=== PATIENT | male | born 1980 | race Caucasian/White ===

== ENCOUNTER 2018-12-11 21:18 | Emergency (ER) | payer MEDICAID ==
--- NOTE | 2018-12-11 21:39 | EDM.PDOC ---
ED HPI GENERAL MEDICAL PROBLEM - General Stated Complaint: PANIC ATTACK Time Seen by Provider: 12/11/18 21:25 Source of Information: Reports: Patient - History of Present Illness INITIAL COMMENTS - FREE TEXT/NARRATIVE: pt comes in with c/o feeling anxious and restless , started suddenly about 30 minutes ago, report feeling fearful, denies any suicidal or homicidal ideation, or anything that he is aware off that may have triggered this , pt denies alcohol or illicit drug abuse. pt report Hx of anxiety and insomina and tells me this is why he is on Seroquel , beside the above pt has no other medical concerns. . - Related Data Allergies Allergy/AdvReac Type Severity Reaction Status Date / Time No Known Allergies Allergy Verified 12/11/18 21:33 Home Meds: Home Meds QUEtiapine Fumarate [Quetiapine Fumarate] 200 mg PO BEDTIME 12/11/18 [History] Past Medical History - Past Health History Medical/Surgical History: Denies Medical/Surgical History ED ROS GENERAL - Review of Systems Review Of Systems: See Below Constitutional: Reports: No Symptoms Respiratory: Reports: Shortness of Breath Cardiovascular: Denies: Chest Pain GI/Abdominal: Reports: No Symptoms Psychiatric: Reports: Anxiety. Denies: Hallucinations, Homicidal Ideation, Suicidal Ideation ED EXAM, GENERAL - Physical Exam Exam: See Below Exam Limited By: No Limitations General Appearance: Alert, Anxious, Mild Distress Ears: Normal TMs Nose: Normal Inspection Throat/Mouth: Normal Inspection Head: Atraumatic Neck: Normal Inspection, Supple, Non-Tender Respiratory/Chest: No Respiratory Distress, Lungs Clear, Normal Breath Sounds Cardiovascular: Regular Rate, Rhythm. No: No Murmur GI/Abdominal: Normal Bowel Sounds, Soft, Non-Tender Back Exam: Normal Inspection, Full Range of Motion Extremities: Normal Inspection, Normal Range of Motion Neurological: Alert, Oriented, CN II-XII Intact, Normal Gait Psychiatric: Anxious. No: Tearful Skin Exam: Warm Course - Vital Signs Text/Narrative:: pt is having a panic attack, he is now comfortable after Ativan 2mg IM, and stable for discharge. pt to follow with PCP in 2 days. Last Recorded V/S: Last Vital Signs Temp 36.8 C 12/11/18 21:18 Pulse 104 H 12/11/18 21:18 Resp 18 12/11/18 21:18 BP 161/96 H 12/11/18 21:18 Pulse Ox 99 12/11/18 21:18 - Orders/Labs/Meds Meds: Medications Discontinued Medications Generic Name Dose Route Start Last Admin Trade Name Sury PRN Reason Stop Dose Admin Lorazepam 2 mg 12/11/18 21:40 12/11/18 21:47 Ativan IM 12/11/18 21:41 2 mg ONETIME ONE Administration Departure - Departure Time of Disposition: 22:12 Disposition: Home, Self-Care 01 Clinical Impression: Panic attack - Discharge Information Referrals: PCP,None [Primary Care Provider] -
[2018-12-11] MEDS ORDERED: LORazepam 2 MG/ML SDV IM ONE (21:40)
[2018-12-11] MEDS ORDERED: Haloperidol Lactate 5 MG/ML SDV IM ONE (23:01)
== END 2018-12-12 | disposition home or self-care (01) ==
LOC: FB.ED 21:18
DX: F41.0 Panic disorder [episodic paroxysmal anxiety] (principal); F20.9 Schizophrenia, unspecified
CPT/HCPCS: 96372; 99283; J1630; J2060

== ENCOUNTER 2018-12-20 23:10 | Emergency (ER) | payer MEDICAID ==
[2018-12-20] MEDS ORDERED: Haloperidol Lactate 5 MG/ML SDV IM ONE (23:27)
--- NOTE | 2018-12-21 01:29 | EDM.PDOCBH ---
ED HPI GENERAL MEDICAL PROBLEM - General Chief Complaint: Behavioral/Psych Stated Complaint: PANIC ATTACK Time Seen by Provider: 12/20/18 23:20 Source of Information: Reports: Patient, Significant Other - History of Present Illness INITIAL COMMENTS - FREE TEXT/NARRATIVE: Grzegorz comes into [facility] ED with agitation, delusions of persecution, and auditory hallucinations threatening him harm. Sxs have been occurring with increasing frequency over the past few weeks, without suicidal or homicidal ideation. He has a PMH of paranoid schizophrenia, saw Dr. Castillo for over a year in [place], but has not kept in contact or been taking psychotropic therapy for "a long time". He denies alcohol or drug abuse. He is willing to seek psychiatric care elsewhere, but is afraid to go home with SO. - Related Data Allergies Allergy/AdvReac Type Severity Reaction Status Date / Time No Known Allergies Allergy Verified 12/20/18 23:17 Past Medical History - Past Health History Medical/Surgical History: Denies Medical/Surgical History Psychiatric History: Reports: Anxiety, Schizophrenia Social & Family History - Family History Family Medical History: Noncontributory - Tobacco Use Smoking Status *Q: Current Every Day Smoker Years of Tobacco use: 20 Packs/Tins Daily: 1 - Caffeine Use Caffeine Use: Reports: Soda - Recreational Drug Use Recreational Drug Use: Yes Drug Use in Last 12 Months: Yes Other Recreational Drug Type: not willing to tell Recreational Drug Use Frequency: Binges ED ROS GENERAL - Review of Systems Review Of Systems: Unable To Obtain ED EXAM, BEHAVIORAL HEALTH - Physical Exam Exam: See Below Exam Limited By: Other (agitated) General Appearance: Alert, WD/WN, Anxious Eye Exam: Bilateral Eye: EOMI, Normal Inspection, PERRL Ears: Normal External Exam Nose: Normal Inspection Throat/Mouth: Normal Inspection Head: Normocephalic Neck: Normal Inspection Respiratory/Chest: Lungs Clear Cardiovascular: Regular Rate, Rhythm GI/Abdominal: Normal Bowel Sounds, Soft, Non-Tender, No Mass (Male) Exam: Deferred Rectal (Males) Exam: Deferred Back Exam: Normal Inspection, Full Range of Motion Extremities: Normal Range of Motion Neurological: Alert, CN II-XII Intact, Normal Reflexes, No Motor/Sensory Deficits Psychiatric: Alert, Restless, Agitated, Poor Eye Contact, Tangential Thoughts, Auditory Hallucinations, Paranoid Thoughts Skin Exam: Warm, Dry, Intact, Normal color, No rash COURSE, BEHAVIORAL HEALTH COMP - Course Vital Signs: Last Vital Signs Temp 36.5 C 12/20/18 23:15 Pulse 58 L 12/20/18 23:15 Resp 18 12/20/18 23:15 BP 152/113 H 12/20/18 23:15 Pulse Ox 98 12/20/18 23:15 Orders, Labs, Meds: Medications Discontinued Medications Generic Name Dose Route Start Last Admin Trade Name Freq PRN Reason Stop Dose Admin Haloperidol Lactate 10 mg 12/20/18 23:27 12/20/18 23:34 Haldol IM 12/20/18 23:28 10 mg ONETIME ONE Administration Departure - Departure Time of Disposition: :34 Disposition: Home, Self-Care 01 Condition: Poor Clinical Impression: Schizophrenia Qualifiers: Schizophrenia type: paranoid schizophrenia Qualified Code(s): F20.0 - Paranoid schizophrenia - Discharge Information *PRESCRIPTION DRUG MONITORING PROGRAM REVIEWED*: Not Applicable *COPY OF PRESCRIPTION DRUG MONITORING REPORT IN PATIENT ABIGAIL: Not Applicable Referrals: Darrius Frausto MD [Primary Care Provider] - - Problem List & Annotations (1) Schizophrenia SNOMED Code(s): 62417039 Code(s): F20.9 - SCHIZOPHRENIA, UNSPECIFIED Status: Acute Current Visit: Yes Annotation/Comment:: Grzegorz is agreeable to seeking psychiatric care, and eventually consented to go home and seek treatment as an outpatient. He will contact PCP for help in arranging an appointment. Qualifiers: Schizophrenia type: paranoid schizophrenia Qualified Code(s): F20.0 - Paranoid schizophrenia - Problem List Review Problem List Initiated/Reviewed/Updated: Yes - Assessment/Plan Plan: Follow up with PCP.
== END 2018-12-21 01:39 | disposition home or self-care (01) ==
LOC: FB.ED 23:10
DX: F20.0 Paranoid schizophrenia (principal); F17.210 Nicotine dependence, cigarettes, uncomplicated
CPT/HCPCS: 96372; 99284; J1630

== ENCOUNTER 2019-06-02 19:33 | Emergency (ER) | payer MEDICAID ==
--- NOTE | 2019-06-02 21:44 | EDM.PDOC ---
ED HPI GENERAL MEDICAL PROBLEM - General Chief Complaint: General Stated Complaint: ANXIETY Time Seen by Provider: 06/02/19 21:40 Source of Information: Reports: Patient, RN History Limitations: Reports: Altered Mental Status - History of Present Illness INITIAL COMMENTS - FREE TEXT/NARRATIVE: 38 yo male who complains of hearing voices. He has had these for a few months but gotten worse last two days. They are threatening,and as such he feels like he is unsafe and may kill himself. He is extremely anxious,and restless. He does endorse a h/o schizophrenia,anxiety and also endorses drug [id number] and weed a few days ago) he has no prior attempts for suicide but has had thought so f it. He has hospitalized at [facility] last year. - Related Data Allergies Allergy/AdvReac Type Severity Reaction Status Date / Time No Known Allergies Allergy Verified 06/02/19 19:49 Home Meds: Home Meds OLANZapine [Olanzapine] 5 mg PO DAILY 06/02/19 [History] OLANZapine [Olanzapine] 10 mg PO BEDTIME 06/02/19 [History] QUEtiapine Fumarate [Quetiapine Fumarate] 200 mg PO BEDTIME 06/02/19 [History] clonazePAM [Klonopin] 1 mg PO BEDTIME 06/02/19 [History] Past Medical History - Past Health History Medical/Surgical History: Denies Medical/Surgical History Psychiatric History: Reports: Anxiety, Schizophrenia Social & Family History - Family History Family Medical History: Noncontributory - Tobacco Use Smoking Status *Q: Current Every Day Smoker Years of Tobacco use: 19 Packs/Tins Daily: 1 - Caffeine Use Caffeine Use: Reports: Soda - Recreational Drug Use Recreational Drug Use: No ED ROS GENERAL - Review of Systems Review Of Systems: ROS reveals no pertinent complaints other than HPI. ED EXAM, GENERAL - Physical Exam Exam: See Below Exam Limited By: Altered Mental Status General Appearance: Alert, Anxious, Mild Distress Ears: Normal External Exam Ear Exam: Bilateral Ear: Auricle Normal, Canal Normal, TM normal Respiratory/Chest: No Respiratory Distress Cardiovascular: Normal Peripheral Pulses Neurological: Alert, Oriented Psychiatric: Anxious, Other (Restless,pyshcotic) Skin Exam: Warm Course - Vital Signs Last Recorded V/S: Last Vital Signs Temp 98.1 F 06/02/19 19:40 Pulse 98 06/02/19 22:05 Resp 18 06/02/19 22:05 BP 145/106 H 06/02/19 22:05 Pulse Ox 98 06/02/19 22:05 - Orders/Labs/Meds Labs: Laboratory Tests 06/02/19 06/02/19 06/02/19 Range/Units 20:05 20:05 20:05 WBC 10.1 (4.5-12.0) X10-3/uL RBC 5.15 (4.30-5.75) x10(6)uL Hgb 16.1 (13.5-17.8) g/dL Hct 47.0 (30.0-51.3) % MCV 91.4 (80-96) fL MCH 31.3 (27.7-33.6) pg MCHC 34.2 (32.2-35.4) g/dL RDW 12.6 (11.5-15.5) % Plt Count 359 (125-369) X10(3)uL MPV 8.1 (7.4-10.4) fL Neut % (Auto) 58.3 (46-82) % Lymph % (Auto) 29.1 (13-37) % [place] % (Auto) 9.9 (4-12) % Eos % (Auto) 2 (1.0-5.0) % Baso % (Auto) 1 (0-2) % Neut # (Auto) 5.9 (1.6-8.3) # Lymph # (Auto) 2.9 (0.6-5.0) # [place] # (Auto) 1.0 (0.0-1.3) # Eos # (Auto) 0.2 (0.0-0.8) # Baso # (Auto) 0.1 (0.0-0.2) # Sodium 139 (135-145) mmol/L Potassium 3.7 (3.5-5.3) mmol/L Chloride 101 (100-110) mmol/L Carbon Dioxide 30 (21-32) mmol/L BUN 7 (7-18) mg/dL Creatinine 1.0 (0.70-1.30) mg/dL Est Cr Clr Drug Dosing 104.43 mL/min Estimated GFR (MDRD) > 60 (>60) BUN/Creatinine Ratio 7.0 L (9-20) Glucose 98 (80-116) mg/dL Calcium 9.3 (8.6-10.2) mg/dL Total Bilirubin 0.5 (0.1-1.3) mg/dL AST 12 (5-25) IU/L ALT 24 (12-36) U/L Alkaline Phosphatase 81 (56-112) IU/L Total Protein 7.6 (6.0-8.0) g/dL Albumin 3.6 (3.5-5.2) g/dL Globulin 4.0 g/dL Albumin/Globulin Ratio 0.9 TSH, Ultra Sensitive 1.34 (0.36-3.74) IU/mL Urine Color (YELLOW) Urine Appearance (CLEAR) Urine pH (5.0-6.5) Ur Specific [place] (1.010-1.025) Urine Protein (NEGATIVE) mg/dL Urine Glucose (UA) (NORMAL) mg/dL Urine Ketones (NEGATIVE) mg/dL Urine Occult Blood (NEGATIVE) Urine Nitrite (NEGATIVE) Urine Bilirubin (NEGATIVE) Urine Urobilinogen (NEGATIVE) mg/dL Ur Leukocyte Esterase (NEGATIVE) Urine RBC (0-5) Urine WBC (0-5) Ur Squamous Epith Cells (NS,R,O) Urine Bacteria (NS) Urine Mucus (NS) Urine Opiates Screen (NEGATIVE) Ur Oxycodone Screen (NEGATIVE) Ur Propoxyphene Screen (NEGATIVE) Ur Barbituates Screen (NEGATIVE) Ur Tricyclics Screen (NEGATIVE) Ur Phencyclidine Scrn (NEGATIVE) Ur Amphetamine Screen (NEGATIVE) Urine MDMA Screen (NEGATIVE) U Benzodiazepines Scrn (NEGATIVE) U Cocaine Metab Screen (NEGATIVE) U Marijuana (THC) Screen (NEGATIVE) Ethyl Alcohol < 0.03 (<0.03) % 06/02/19 06/02/19 Range/Units 20:50 20:50 WBC (4.5-12.0) X10-3/uL RBC (4.30-5.75) x10(6)uL Hgb (13.5-17.8) g/dL Hct (30.0-51.3) % MCV (80-96) fL MCH (27.7-33.6) pg MCHC (32.2-35.4) g/dL RDW (11.5-15.5) % Plt Count (125-369) X10(3)uL MPV (7.4-10.4) fL Neut % (Auto) (46-82) % Lymph % (Auto) (13-37) % [place] % (Auto) (4-12) % Eos % (Auto) (1.0-5.0) % Baso % (Auto) (0-2) % Neut # (Auto) (1.6-8.3) # Lymph # (Auto) (0.6-5.0) # [place] # (Auto) (0.0-1.3) # Eos # (Auto) (0.0-0.8) # Baso # (Auto) (0.0-0.2) # Sodium (135-145) mmol/L Potassium (3.5-5.3) mmol/L Chloride (100-110) mmol/L Carbon Dioxide (21-32) mmol/L BUN (7-18) mg/dL Creatinine (0.70-1.30) mg/dL Est Cr Clr Drug Dosing mL/min Estimated GFR (MDRD) (>60) BUN/Creatinine Ratio (9-20) Glucose (80-116) mg/dL Calcium (8.6-10.2) mg/dL Total Bilirubin (0.1-1.3) mg/dL AST (5-25) IU/L ALT (12-36) U/L Alkaline Phosphatase (56-112) IU/L Total Protein (6.0-8.0) g/dL Albumin (3.5-5.2) g/dL Globulin g/dL Albumin/Globulin Ratio TSH, Ultra Sensitive (0.36-3.74) IU/mL Urine Color Yellow (YELLOW) Urine Appearance Clear (CLEAR) Urine pH 6.5 (5.0-6.5) Ur Specific [place] 1.010 (1.010-1.025) Urine Protein Negative (NEGATIVE) mg/dL Urine Glucose (UA) Normal (NORMAL) mg/dL Urine Ketones Negative (NEGATIVE) mg/dL Urine Occult Blood Negative (NEGATIVE) Urine Nitrite Negative (NEGATIVE) Urine Bilirubin Negative (NEGATIVE) Urine Urobilinogen Normal (NEGATIVE) mg/dL Ur Leukocyte Esterase Negative (NEGATIVE) Urine RBC 0-5 (0-5) Urine WBC 0-5 (0-5) Ur Squamous Epith Cells Occasional (NS,R,O) Urine Bacteria Few H (NS) Urine Mucus Few H (NS) Urine Opiates Screen Negative (NEGATIVE) Ur Oxycodone Screen Negative (NEGATIVE) Ur Propoxyphene Screen Negative (NEGATIVE) Ur Barbituates Screen Negative (NEGATIVE) Ur Tricyclics Screen Negative (NEGATIVE) Ur Phencyclidine Scrn Negative (NEGATIVE) Ur Amphetamine Screen Positive H (NEGATIVE) Urine MDMA Screen Negative (NEGATIVE) U Benzodiazepines Scrn Positive H (NEGATIVE) U Cocaine Metab Screen Negative (NEGATIVE) U Marijuana (THC) Screen Negative (NEGATIVE) Ethyl Alcohol (<0.03) % Meds: Medications Discontinued Medications Generic Name Dose Route Start Last Admin Trade Name Freq PRN Reason Stop Dose Admin Clonazepam 1 mg 06/03/19 22:59 06/02/19 23:13 Klonopin PO 06/03/19 23:00 1 mg ONETIME ONE Administration Clonazepam Confirm 06/02/19 23:08 06/02/19 23:20 Klonopin Administered 06/02/19 23:09 Not Given Dose 1 mg .ROUTE .STK-MED ONE Olanzapine 10 mg 06/02/19 22:59 06/02/19 23:13 Zyprexa PO 06/02/19 23:00 10 mg ONETIME ONE Administration Quetiapine Fumarate 200 mg 06/03/19 22:59 Seroquel PO 06/03/19 23:00 ONETIME ONE Departure - Departure Time of Disposition: 01:00 Disposition: DC/Tfer to Psych Hosp/Unit 65 Condition: Good Clinical Impression: Schizophrenia, acute - Discharge Information Referrals: Darrius Frausto MD [Primary Care Provider] - Forms: ED Department Discharge - Problem List & Annotations (1) Acute psychosis SNOMED Code(s): 06526635, 43300852 Code(s): F23 - BRIEF PSYCHOTIC DISORDER Status: Acute (2) Drug abuse SNOMED Code(s): 26194331 Code(s): F19.10 - OTHER PSYCHOACTIVE SUBSTANCE ABUSE, UNCOMPLICATED Status : Acute (3) Schizophrenia, acute SNOMED Code(s): 22556789 Code(s): F23 - BRIEF PSYCHOTIC DISORDER Status: Acute (4) Schizophrenia SNOMED Code(s): 67912547 Code(s): F20.9 - SCHIZOPHRENIA, UNSPECIFIED Status: Acute Annotation/ Comment:: Grzegorz is agreeable to seeking psychiatric care, and eventually consented to go home and seek treatment as an outpatient. He will contact PCP for help in arranging an appointment. Qualifiers: Schizophrenia type: paranoid schizophrenia Qualified Code(s): F20.0 - Paranoid schizophrenia - Problem List Review Problem List Initiated/Reviewed/Updated: Yes - Assessment/Plan Plan: We consulted Jasmine Barragan. he was transferred to [facility]
[2019-06-02] MEDS ORDERED: OLANZapine 5 MG Tab PO ONE (22:59)
[2019-06-02] MEDS ORDERED: ClonazePAM 1 MG Tab ONE (23:08)
[2019-06-03] MEDS ORDERED: QUEtiapine 100 MG Tab PO ONE (22:59)
[2019-06-03] MEDS ORDERED: ClonazePAM 1 MG Tab PO ONE (22:59)
== END 2019-06-03 01:40 ==
LOC: FB.ED 19:33
DX: F23 Brief psychotic disorder (principal)
CPT/HCPCS: 36415; 80053; 80305; 80320; 81001; 84443; 85025; 99284; A9270; G0480

== ENCOUNTER 2019-07-25 11:50 | Emergency (ER) | payer MEDICAID ==
[2019-07-25] MEDS ORDERED: LORazepam 1 MG Tab PO ONE (12:22)
[2019-07-25 12:41] LABS: ACETAMINOPHEN < 2 ug/mL (<2)
--- NOTE | 2019-07-25 14:56 | EDM.PDOC ---
ED HPI GENERAL MEDICAL PROBLEM - General Chief Complaint: Behavioral/Psych Stated Complaint: ANXIETY ATTACK Time Seen by Provider: 07/25/19 12:00 Source of Information: Reports: Patient - History of Present Illness INITIAL COMMENTS - FREE TEXT/NARRATIVE: pt with long Hx of depression and anxiety, comes in asking for help to be admitted to crises, states he has been very stressed lately and his anxiety is out of control , report taking his Klonopin twice daily as directed as prescribed , report occasional use of meth, denies any suicidal ideations or hallucinations, or any alcohol use or any other associated sx or medical concerns. - Related Data Allergies Allergy/AdvReac Type Severity Reaction Status Date / Time No Known Allergies Allergy Verified 07/25/19 12:02 Home Meds: Home Meds QUEtiapine Fumarate [Quetiapine Fumarate] 300 mg PO BEDTIME 06/02/19 [History] clonazePAM [Klonopin] 0.5 - 1 mg PO BID 06/02/19 [History] Past Medical History - Past Health History Medical/Surgical History: Denies Medical/Surgical History Psychiatric History: Reports: Anxiety, Panic Attack, Psych Hospitalization(s), Schizophrenia, Suicide Attempt - Infectious Disease History Infectious Disease History: Reports: Chicken Pox - Past Surgical History HEENT Surgical History: Reports: Oral Surgery Social & Family History - Family History Family Medical History: Noncontributory - Tobacco Use Smoking Status *Q: Current Every Day Smoker Years of Tobacco use: 21 Packs/Tins Daily: 0.5 - Caffeine Use Caffeine Use: Reports: Coffee, Soda - Recreational Drug Use Recreational Drug Use: Yes Recreational Drug Type: Reports: Methamphetamine Other Recreational Drug Type: hx been in tx for meth use in past. Admits to smoking 3 days ago. Recreational Drug Use Frequency: Monthly ED ROS GENERAL - Review of Systems Review Of Systems: See Below Constitutional: Denies: Fever, Chills, Fatigue HEENT: Reports: No Symptoms Respiratory: Reports: No Symptoms Cardiovascular: Reports: No Symptoms GI/Abdominal: Reports: No Symptoms : Reports: No Symptoms Musculoskeletal: Reports: No Symptoms Skin: Reports: No Symptoms Neurological: Reports: No Symptoms Psychiatric: Reports: Anxiety, Confusion, Depression, Mood Lability. Denies: Agitation, Hallucinations, Homicidal Ideation, Suicidal Ideation ED EXAM, GENERAL - Physical Exam Exam: See Below Exam Limited By: No Limitations General Appearance: Alert, Anxious. No: Lethargic, Obtunded Ears: Normal External Exam, Normal TMs Nose: Normal Inspection Throat/Mouth: Normal Inspection, Normal Oropharynx Head: Atraumatic, Normocephalic Neck: Normal Inspection, Supple, Non-Tender Respiratory/Chest: No Respiratory Distress, Lungs Clear Cardiovascular: Normal Peripheral Pulses, Regular Rate, Rhythm GI/Abdominal: Normal Bowel Sounds, Soft, Non-Tender Back Exam: Normal Inspection Extremities: Normal Inspection, Normal Range of Motion Neurological: Alert, CN II-XII Intact Psychiatric: Normal Affect Skin Exam: Warm, Dry Course - Vital Signs Text/Narrative:: labs results were explained to pt. pt calmed here and was doing very well after ativan 1mg. we tried to help attend to crises but no place has accepted him . pt is medically stable for discharge and he may follow on this issue with PCP or on his own by re-contacting detox and crises facilities. Last Recorded V/S: Last Vital Signs Temp 36.7 C 07/25/19 11:58 Pulse 127 H 07/25/19 11:58 Resp 18 07/25/19 11:58 BP 150/94 H 07/25/19 11:58 Pulse Ox 96 07/25/19 11:58 - Orders/Labs/Meds Labs: Laboratory Tests 07/25/19 07/25/19 07/25/19 Range/Units 12:20 12:20 12:20 WBC 11.4 (4.5-12.0) X10-3/uL RBC 5.42 (4.30-5.75) x10(6)uL Hgb 16.6 (13.5-17.8) g/dL Hct 49.0 (30.0-51.3) % MCV 90.3 (80-96) fL MCH 30.7 (27.7-33.6) pg MCHC 34.0 (32.2-35.4) g/dL RDW 12.6 (11.5-15.5) % Plt Count 411 H (125-369) X10(3)uL MPV 7.6 (7.4-10.4) fL Neut % (Auto) 74.7 (46-82) % Lymph % (Auto) 17.5 (13-37) % [place] % (Auto) 6.4 (4-12) % Eos % (Auto) 1 (1.0-5.0) % Baso % (Auto) 1 (0-2) % Neut # (Auto) 8.5 H (1.6-8.3) # Lymph # (Auto) 2.0 (0.6-5.0) # [place] # (Auto) 0.7 (0.0-1.3) # Eos # (Auto) 0.1 (0.0-0.8) # Baso # (Auto) 0.1 (0.0-0.2) # Sodium 138 (135-145) mmol/L Potassium 3.7 (3.5-5.3) mmol/L Chloride 102 (100-110) mmol/L Carbon Dioxide 23 (21-32) mmol/L BUN 14 (7-18) mg/dL Creatinine 1.0 (0.70-1.30) mg/dL Est Cr Clr Drug Dosing 104.43 mL/min Estimated GFR (MDRD) > 60 (>60) BUN/Creatinine Ratio 14.0 (9-20) Glucose 104 (80-116) mg/dL Calcium 9.4 (8.6-10.2) mg/dL TSH, Ultra Sensitive 2.50 (0.36-3.74) IU/mL Salicylates 4.0 (<2.8) mg/dL Urine Opiates Screen (NEGATIVE) Ur Oxycodone Screen (NEGATIVE) Ur Propoxyphene Screen (NEGATIVE) Acetaminophen < 2 L (<2) ug/mL Ur Barbituates Screen (NEGATIVE) Ur Tricyclics Screen (NEGATIVE) Ur Phencyclidine Scrn (NEGATIVE) Ur Amphetamine Screen (NEGATIVE) Urine MDMA Screen (NEGATIVE) U Benzodiazepines Scrn (NEGATIVE) U Cocaine Metab Screen (NEGATIVE) U Marijuana (THC) Screen (NEGATIVE) Ethyl Alcohol < 0.03 (<0.03) % 07/25/19 Range/Units 12:45 WBC (4.5-12.0) X10-3/uL RBC (4.30-5.75) x10(6)uL Hgb (13.5-17.8) g/dL Hct (30.0-51.3) % MCV (80-96) fL MCH (27.7-33.6) pg MCHC (32.2-35.4) g/dL RDW (11.5-15.5) % Plt Count (125-369) X10(3)uL MPV (7.4-10.4) fL Neut % (Auto) (46-82) % Lymph % (Auto) (13-37) % [place] % (Auto) (4-12) % Eos % (Auto) (1.0-5.0) % Baso % (Auto) (0-2) % Neut # (Auto) (1.6-8.3) # Lymph # (Auto) (0.6-5.0) # [place] # (Auto) (0.0-1.3) # Eos # (Auto) (0.0-0.8) # Baso # (Auto) (0.0-0.2) # Sodium (135-145) mmol/L Potassium (3.5-5.3) mmol/L Chloride (100-110) mmol/L Carbon Dioxide (21-32) mmol/L BUN (7-18) mg/dL Creatinine (0.70-1.30) mg/dL Est Cr Clr Drug Dosing mL/min Estimated GFR (MDRD) (>60) BUN/Creatinine Ratio (9-20) Glucose (80-116) mg/dL Calcium (8.6-10.2) mg/dL TSH, Ultra Sensitive (0.36-3.74) IU/mL Salicylates (<2.8) mg/dL Urine Opiates Screen Negative (NEGATIVE) Ur Oxycodone Screen Negative (NEGATIVE) Ur Propoxyphene Screen Negative (NEGATIVE) Acetaminophen (<2) ug/mL Ur Barbituates Screen Negative (NEGATIVE) Ur Tricyclics Screen Positive H (NEGATIVE) Ur Phencyclidine Scrn Negative (NEGATIVE) Ur Amphetamine Screen Positive H (NEGATIVE) Urine MDMA Screen Negative (NEGATIVE) U Benzodiazepines Scrn Negative (NEGATIVE) U Cocaine Metab Screen Negative (NEGATIVE) U Marijuana (THC) Screen Negative (NEGATIVE) Ethyl Alcohol (<0.03) % Meds: Medications Discontinued Medications Generic Name Dose Route Start Last Admin Trade Name Freq PRN Reason Stop Dose Admin Lorazepam 1 mg 07/25/19 12:22 07/25/19 13:00 Ativan PO 07/25/19 12:23 1 mg ONETIME ONE Administration Departure - Departure Time of Disposition: 16:04 Disposition: Home, Self-Care 01 Clinical Impression: Anxiety - Discharge Information Referrals: Darrius Frausto MD [Primary Care Provider] - Forms: ED Department Discharge
== END 2019-07-25 16:38 | disposition home or self-care (01) ==
LOC: FB.ED 11:50
DX: F41.9 Anxiety disorder, unspecified (principal); F17.210 Nicotine dependence, cigarettes, uncomplicated; Z79.899 Other long term (current) drug therapy
CPT/HCPCS: 36415; 80048; 80305-QW; 84443; 85025; 99283; A9270-GY; G0480

== ENCOUNTER 2019-11-28 19:09 | Emergency (ER) | payer MEDICAID ==
[2019-11-28] MEDS ORDERED: OLANZapine 10 MG Vial IM ONE (22:11)
--- NOTE | 2019-11-28 22:23 | EDM.PDOCBH ---
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, smokes 1 ppd last hospitalized at [facility] 07/14 says he feels like he needs to be in the hospital vague thoughts of self harm, admits to feeling lonely 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[employer] at the moment pt works at [employer], 30 hr/work, not scheduled to work in the next several days has 2 children, ages 9 and 4, who live elsewhere, he last saw them 2-3y ago - Related Data Allergies Allergy/AdvReac Type Severity Reaction Status Date / Time No Known Allergies Allergy Verified 07/25/19 12:02 Home Meds: Home Meds QUEtiapine Fumarate [Quetiapine Fumarate] 300 mg PO BEDTIME 06/02/19 [History] clonazePAM [Klonopin] 0.5 - 1 mg PO BID 06/02/19 [History] Past Medical History - Past Health History Medical/Surgical History: Denies Medical/Surgical History Psychiatric History: Reports: Anxiety, Panic Attack, Psych Hospitalization(s), Schizophrenia, Suicide Attempt - Infectious Disease History Infectious Disease History: Reports: Chicken Pox - Past Surgical History HEENT Surgical History: Reports: Oral Surgery Social & Family History - Family History Family Medical History: Noncontributory - Tobacco Use Smoking Status *Q: Current Every Day Smoker Years of Tobacco use: 20 Packs/Tins Daily: 1 - Caffeine Use Caffeine Use: Reports: Coffee, Soda ED ROS GENERAL - Review of Systems Review Of Systems: See Below Constitutional: Reports: No Symptoms HEENT: Reports: No Symptoms Respiratory: Reports: No Symptoms Cardiovascular: Reports: No Symptoms Endocrine: Reports: No Symptoms GI/Abdominal: Reports: No Symptoms : Reports: No Symptoms Musculoskeletal: Reports: No Symptoms Skin: Reports: No Symptoms Neurological: Reports: No Symptoms Psychiatric: Reports: Agitation, Anxiety, Hallucinations, Mood Lability Hematologic/Lymphatic: Reports: No Symptoms Immunologic: Reports: No Symptoms ED EXAM, BEHAVIORAL HEALTH - Physical Exam Exam: See Below Exam Limited By: Other (cooperative, rocking rapidly in chair) General Appearance: Alert, WD/WN, Moderate Distress Eye Exam: Bilateral Eye: PERRL Ears: Normal External Exam, Normal Canal, Hearing Grossly Normal Nose: Normal Inspection Throat/Mouth: Normal Inspection Head: Atraumatic, Normocephalic Neck: Normal Inspection, Supple Respiratory/Chest: No Respiratory Distress Cardiovascular: Regular Rate, Rhythm GI/Abdominal: Soft Back Exam: Normal Inspection Extremities: Normal Inspection, Normal Range of Motion, No Pedal Edema Neurological: Alert, CN II-XII Intact, No Motor/Sensory Deficits, Oriented x 3 Psychiatric: Restless, Auditory Hallucinations, Other (very anxious, paranoia, cooperative, answers appropriately in complete sentences, slight pressured speech c/w anxiety) Skin Exam: Warm, Dry, Intact, Normal color, No rash COURSE, BEHAVIORAL HEALTH COMP - Course Vital Signs: Last Vital Signs Temp 36.2 C 11/28/19 19:09 Pulse 115 H 11/28/19 19:09 Resp 20 11/28/19 19:09 BP 157/106 H 11/28/19 19:09 Pulse Ox 98 11/28/19 19:09 Orders, Labs, Meds: Laboratory Tests 11/28/19 11/28/19 11/28/19 Range/Units 22:14 22:14 22:25 WBC 14.3 H (4.5-12.0) X10-3/uL RBC 5.59 (4.30-5.75) x10(6)uL Hgb 17.1 (13.5-17.8) g/dL Hct 50.3 (30.0-51.3) % MCV 90.0 (80-96) fL MCH 30.6 (27.7-33.6) pg MCHC 34.0 (32.2-35.4) g/dL RDW 12.6 (11.5-15.5) % Plt Count 413 H (125-369) X10(3)uL MPV 7.6 (7.4-10.4) fL Neut % (Auto) 65.9 (46-82) % Lymph % (Auto) 24.8 (13-37) % Mcke[place] % (Auto) 6.6 (4-12) % Eos % (Auto) 2 (1.0-5.0) % Baso % (Auto) 1 (0-2) % Neut # (Auto) 9.4 H (1.6-8.3) # Lymph # (Auto) 3.6 (0.6-5.0) # Mckean # (Auto) 0.9 (0.0-1.3) # Eos # (Auto) 0.2 (0.0-0.8) # Baso # (Auto) 0.2 (0.0-0.2) # Sodium (135-145) mmol/L Potassium (3.5-5.3) mmol/L Chloride (100-110) mmol/L Carbon Dioxide (21-32) mmol/L BUN (7-18) mg/dL Creatinine (0.70-1.30) mg/dL Est Cr Clr Drug Dosing mL/min Estimated GFR (MDRD) (>60) BUN/Creatinine Ratio (9-20) Glucose (80-116) mg/dL Calcium (8.6-10.2) mg/dL Total Bilirubin (0.1-1.3) mg/dL AST (5-25) IU/L ALT (12-36) U/L Alkaline Phosphatase (56-112) IU/L C-Reactive Protein (0.5-0.9) mg/dL Total Protein (6.0-8.0) g/dL Albumin (3.5-5.2) g/dL Globulin g/dL Albumin/Globulin Ratio TSH, Ultra Sensitive (0.36-3.74) IU/mL Urine Color Yellow (YELLOW) Urine Appearance Clear (CLEAR) Urine pH 7.0 H (5.0-6.5) Ur Specific [place] 1.010 (1.010-1.025) Urine Protein Negative (NEGATIVE) mg/dL Urine Glucose (UA) Normal (NORMAL) mg/dL Urine Ketones Negative (NEGATIVE) mg/dL Urine Occult Blood Negative (NEGATIVE) Urine Nitrite Negative (NEGATIVE) Urine Bilirubin Negative (NEGATIVE) Urine Urobilinogen Normal (NEGATIVE) mg/dL Ur Leukocyte Esterase Negative (NEGATIVE) Salicylates (<2.8) mg/dL Urine Opiates Screen Negative (NEGATIVE) Ur Oxycodone Screen Negative (NEGATIVE) Ur Propoxyphene Screen Negative (NEGATIVE) Acetaminophen (<2) ug/mL Ur Barbituates Screen Negative (NEGATIVE) Ur Tricyclics Screen Negative (NEGATIVE) Ur Phencyclidine Scrn Negative (NEGATIVE) Ur Amphetamine Screen Negative (NEGATIVE) Urine MDMA Screen Negative (NEGATIVE) U Benzodiazepines Scrn Negative (NEGATIVE) U Cocaine Metab Screen Negative (NEGATIVE) U Marijuana (THC) Screen Negative (NEGATIVE) Ethyl Alcohol (<0.03) % 11/28/19 11/28/19 11/28/19 Range/Units 22:25 22:25 22:29 WBC (4.5-12.0) X10-3/uL RBC (4.30-5.75) x10(6)uL Hgb (13.5-17.8) g/dL Hct (30.0-51.3) % MCV (80-96) fL MCH (27.7-33.6) pg MCHC (32.2-35.4) g/dL RDW (11.5-15.5) % Plt Count (125-369) X10(3)uL MPV (7.4-10.4) fL Neut % (Auto) (46-82) % Lymph % (Auto) (13-37) % [place]ke[place] % (Auto) (4-12) % Eos % (Auto) (1.0-5.0) % Baso % (Auto) (0-2) % Neut # (Auto) (1.6-8.3) # Lymph # (Auto) (0.6-5.0) # Mckean # (Auto) (0.0-1.3) # Eos # (Auto) (0.0-0.8) # Baso # (Auto) (0.0-0.2) # Sodium 140 (135-145) mmol/L Potassium 4.1 (3.5-5.3) mmol/L Chloride 106 (100-110) mmol/L Carbon Dioxide 28 (21-32) mmol/L BUN 9 (7-18) mg/dL Creatinine 1.1 (0.70-1.30) mg/dL Est Cr Clr Drug Dosing 94.94 mL/min Estimated GFR (MDRD) > 60 (>60) BUN/Creatinine Ratio 8.2 L (9-20) Glucose 85 (80-116) mg/dL Calcium 9.3 (8.6-10.2) mg/dL Total Bilirubin 0.4 (0.1-1.3) mg/dL AST 16 D (5-25) IU/L ALT 24 (12-36) U/L Alkaline Phosphatase 79 (56-112) IU/L C-Reactive Protein 0.3 L (0.5-0.9) mg/dL Total Protein 8.0 (6.0-8.0) g/dL Albumin 3.9 (3.5-5.2) g/dL Globulin 4.1 g/dL Albumin/Globulin Ratio 1.0 TSH, Ultra Sensitive 2.76 (0.36-3.74) IU/mL Urine Color (YELLOW) Urine Appearance (CLEAR) Urine pH (5.0-6.5) Ur Specific [place] (1.010-1.025) Urine Protein (NEGATIVE) mg/dL Urine Glucose (UA) (NORMAL) mg/dL Urine Ketones (NEGATIVE) mg/dL Urine Occult Blood (NEGATIVE) Urine Nitrite (NEGATIVE) Urine Bilirubin (NEGATIVE) Urine Urobilinogen (NEGATIVE) mg/dL Ur Leukocyte Esterase (NEGATIVE) Salicylates 3.9 (<2.8) mg/dL Urine Opiates Screen (NEGATIVE) Ur Oxycodone Screen (NEGATIVE) Ur Propoxyphene Screen (NEGATIVE) Acetaminophen < 2 L (<2) ug/mL Ur Barbituates Screen (NEGATIVE) Ur Tricyclics Screen (NEGATIVE) Ur Phencyclidine Scrn (NEGATIVE) Ur Amphetamine Screen (NEGATIVE) Urine MDMA Screen (NEGATIVE) U Benzodiazepines Scrn (NEGATIVE) U Cocaine Metab Screen (NEGATIVE) U Marijuana (THC) Screen (NEGATIVE) Ethyl Alcohol < 0.03 (<0.03) % Medications Discontinued Medications Generic Name Dose Route Start Last Admin Trade Name Freq PRN Reason Stop Dose Admin Olanzapine 10 mg 11/28/19 22:11 11/28/19 22:32 Zyprexa IM 11/28/19 22:12 10 mg ONETIME ONE Administration Re-Assessment/Re-Exam: more relaxed after Zyprexa 10 mg IM, says he is not hearing voices at the moment , resting supine on the bed, had been sitting a chair and rocking for 2 hours when he first arrived says would like to be hospitalized, had been at [facility] for 6 days this past June , his last hospitalization labs are negative, PE unremarkable, he is medically cleared he is willing to go to [facility] on a voluntary basis he continues to be cooperative and pleasant here 6:04a [facility] reviewed pt's chart and did not think he met criteria for hospitalization even tough they have an open pt, they said that they can do an outpt assessment, however pt would need to call to set that up himself, pt informed, pt also encouraged to see his PCP Dr Campos, pt states he does not have a psychiatrist or therapist, pt rested or slept all night in the ED, he was alert and conversant with good eye contact each time I entered the room, will give him his usual dose of Seroquel (which he missed last night--given Zyprexa instead) Departure - Departure Time of Disposition: 05:59 Disposition: Home, Self-Care 01 Condition: Good Clinical Impression: Anxiety, Panic attack, Schizophrenia, chronic with acute exacerbation - Discharge Information *PRESCRIPTION DRUG MONITORING PROGRAM REVIEWED*: Not Applicable *COPY OF PRESCRIPTION DRUG MONITORING REPORT IN PATIENT ABIGAIL: Not Applicable Instructions: Living With Schizophrenia Referrals: Darrius Frausto MD [Primary Care Provider] - Forms: ED Department Discharge Additional Instructions: Continue your current meds including Seroquel 200 mg at bedtime. See Dr Campos today for a same day appointment for further evaluation and recommendations. [facility] can do both a phone assessment as well as an outpatient assessment at their facility. Call [phone] to arrange either a phone assessment or outpatient assessment. Return to Emergency Department if you are feeling worse. Sepsis Event Note - Evaluation Sepsis Screening Result: No Definite Risk - Focused Exam Vital Signs: Vital Signs Temp Pulse Resp BP Pulse Ox 11/28/19 19:09 36.2 C 115 H 20 157/106 H 98 Date Exam was Performed: 11/29/19 Time Exam was Performed: 05:59
[2019-11-28 22:51] LABS: ACETAMINOPHEN < 2 ug/mL (<2)
[2019-11-29] MEDS ORDERED: QUEtiapine 100 MG Tab ONE (06:06)
[2019-11-29] MEDS ORDERED: QUEtiapine 100 MG Tab PO STA (06:08)
== END 2019-11-29 07:55 ==
LOC: FB.ED 19:09
DX: F41.0 Panic disorder [episodic paroxysmal anxiety] (principal); F20.9 Schizophrenia, unspecified; F17.210 Nicotine dependence, cigarettes, uncomplicated; Z79.899 Other long term (current) drug therapy
CPT/HCPCS: 36415; 80053; 80305; 80307; 81003; 84443; 85025; 86140; 96372; 99283; A9270; J3490

== ENCOUNTER 2022-01-15 16:42 | Emergency (ER) | payer MEDICAID ==
[2022-01-15] MEDS ORDERED: Ketorolac 30 MG/ML SDV IM ONE (17:20)
== END 2022-01-15 17:30 | disposition home or self-care (01) ==
LOC: FB.ED 16:42
DX: K04.7 Periapical abscess without sinus (principal)
CPT/HCPCS: 99281; 99282

== ENCOUNTER 2022-01-28 17:27 | Emergency (ER) | payer MEDICAID ==
[2022-01-28] MEDS ORDERED: Sodium Chloride 0.9% 10 ML Syringe FLUSH PRN (17:32)
[2022-01-28] MEDS ORDERED: Sodium Chloride 0.9% 1,000 ML IV SCH (18:15)
== END 2022-01-28 18:37 ==
LOC: FB.ED 17:27
DX: R42 Dizziness and giddiness (principal); R53.1 Weakness
CPT/HCPCS: 36415; 70450; 71045; 80053; 80307; 84484; 85025; 85610; 85730; 93005; 99285; J3490; J7030; 93010; 99284

== ENCOUNTER 2022-03-10 22:45 | Emergency (ER) | payer MEDICAID ==
[2022-03-10] MEDS ORDERED: LORazepam 2 MG/ML SDV IM ONE (22:59)
== END 2022-03-11 00:28 | disposition home or self-care (01) ==
LOC: FB.ED 22:45
DX: F41.0 Panic disorder [episodic paroxysmal anxiety] (principal); F17.210 Nicotine dependence, cigarettes, uncomplicated
CPT/HCPCS: 96372; 99282; 99283; J2060